=== PATIENT | female | born 1990 | race Two or more races ===

== ENCOUNTER 2024-12-24 11:00 | Day surgery (SDC) | payer OTHER ==
[2024-12-18 13:58] VITALS: BP 11/76
[~2024-12-24] VITALS: Ht 185.4 cm; Wt 128.4 kg
[2024-12-24] MEDS ORDERED: LIDOCAINE HCL 1%/EPINEPHRINE 20ML VIAL IJ ONE (11:56)
[2024-12-24] MEDS ORDERED: BUPIVACAINE HCL/MPF 0.5% 30ML VIAL ONE (11:56)
[2024-12-24] MEDS ORDERED: CEFAZOLIN SODIUM 1,000 MG VIAL ONE (12:09)
[2024-12-24] MEDS ORDERED: POVIDONE-IODINE 118 ML BOTT TOP ONE (12:09)
[2024-12-24] MEDS ORDERED: METHYLENE BLUE 50MG/10ML AMP IV ONE (13:57)
[2024-12-24] MEDS ORDERED: HEMOSTATIC MATRIX 1 KIT KIT TOP ONE (14:09)
[2024-12-24] MEDS ORDERED: SURGIFLO APPLICATOR 1 EACH APPL TOP ONE (14:09)
[2024-12-24] MEDS ORDERED: KETOROLAC TROMETHAMINE 30 MG VIAL ONE ×2 (14:36→16:01)
[2024-12-24] MEDS ORDERED: SUGAMMADEX SODIUM 200 MG/2 ML VIAL IV ONE (14:36)
[2024-12-24] MEDS ORDERED: KETOROLAC TROMETHAMINE 30 MG VIAL IV STA (14:42)
[2024-12-24] MEDS ORDERED: CELEBREX200MG PO (14:49)
[2024-12-24] MEDS ORDERED: MONDOXYNE NL100 MG PO (14:50)
== END 2024-12-24 17:25 | disposition home or self-care (01) ==
LOC: CIR.AMB 11:00
PROVIDERS: ATTEND Obstetrics & Gynecology
DX: Z30.2 Encounter for sterilization (principal); N83.8 Other noninflammatory disorders of ovary, fallopian tube and broad ligament; R10.20 Pelvic and perineal pain unspecified side